=== PATIENT | male | born 1965 | race Caucasian/White ===

== ENCOUNTER 2016-03-18 09:24 | Emergency (ER) | payer SELFPAY ==
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
[2016-03-18] MEDS: 0.9 % SODIUM CHLORIDE 1,000 ML BAG IV ONE (09:45)
[2016-03-18 09:56] LABS: BASO % 0.6 % (0-6); EOS % 3.6 % (0-6); GRAN % 67.2 % (47-80); HEMATOCRIT 45.8 % (42.0-52.0); HEMOGLOBIN 15.1 gm/dl (14.0-18.0); LYMPH % 22.6 % (16-45); MEAN CELL VOLUME 87.7 fl (81-97); MEAN CORPUSCULAR HEMOGLOBIN 28.9 pg (27-33); MEAN PLATELET VOLUME 11.3 fl (7.4-10.4); PLATELET COUNT 183 K/uL (130-400); RED BLOOD COUNT 5.22 M/uL (4.40-5.70); RED CELL DISTRIBUTION WIDTH 13.2 % (11.5-14.5); WHITE BLOOD COUNT W/O DIFF 5.3 K/uL (4.2-12.2)
[2016-03-18 10:08] LABS: ALB/GLOB RATIO 1.5 (1.1-1.8); ALBUMIN 4.5 gm/dL (3.5-5.0); ALKALINE PHOSPHATASE 74 U/L (38-126); ALT/SGPT 49 U/L (21-72); ANION GAP 14.3 (7-16); AST/SGOT 28 U/L (17-59); BILIRUBIN,TOTAL 0.45 mg/dL (0.2-1.3); BLOOD UREA NITROGEN 16 mg/dL (9-20); CARBON DIOXIDE 25.7 mmol/L (22-30); CREATININE 0.9 mg/dL (0.66-1.25); EST GLOMERULAR FILTRATION RATE > 60 ml/min; GLUCOSE,RANDOM 146 mg/dL (70-110); TOTAL PROTEIN 7.5 gm/dL (6.3-8.2)
[2016-03-18 10:10] LABS: INR 0.96; PARTIAL THROMBOPLASTIN TIME 26.4 SECONDS (24.5-39.1); PROTHROMBIN TIME (PATIENT) 10.8 SECONDS (9.5-12.1)
[2016-03-18] MEDS: ONDANSETRON HCL IV 4 MG/2 ML VIAL IVP ONE (11:20)
[2016-03-18] MEDS: MORPHINE SULFATE 5 MG/ML PFS IVP ONE (11:20)
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
== END 2016-03-18 11:56 | disposition home or self-care (01) ==
LOC: ER 09:24
DX: S00.83XA Contusion of other part of head, initial encounter (principal); M54.5 Low back pain; M54.2 Cervicalgia; R10.32 Left lower quadrant pain; R07.81 Pleurodynia; I10 Essential (primary) hypertension; V47.5XXA Car driver injured in collision with fixed or stationary object in traffic accident, initial encounter
CPT/HCPCS: 85025; 85730; 85610; 80053; 72125; 71260; 70450; 74177; Q9967; J2405; J2270; 96374; 96375; 99284; J7030

== ENCOUNTER 2016-04-27 15:34 | Emergency (ER) | payer SELFPAY ==
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
[2016-04-27] MEDS ORDERED: PROMETHAZINE HCL 25 MG/ML VIAL IM ONE (16:26)
[2016-04-27] MEDS ORDERED: HYDROMORPHONE HCL 2 MG/ML VIAL IM ONE (16:26)
[2016-04-27] MEDS ORDERED: ORPHENADRINE CITRATE 60MG/2ML VIAL IM ONE (16:26)
[2016-04-27] MEDS ORDERED: CYCLOBENZAPRINE 10MG TABLET PO ONE (18:09)
[2016-04-27] MEDS ORDERED: NAPROXEN 250 MG TABLET PO ONE (18:09)
== END 2016-04-27 17:57 | disposition home or self-care (01) ==
LOC: ER 15:34
DX: S39.012A Strain of muscle, fascia and tendon of lower back, initial encounter (principal); V47.5XXA Car driver injured in collision with fixed or stationary object in traffic accident, initial encounter
CPT/HCPCS: 99283 ×2; 96372; J1170; J2360; J2550